=== PATIENT | female | born 1990 | race Caucasian/White ===

== ENCOUNTER 2017-08-21 20:20 | Observation (INO) ==
[2017-08-21] MEDS ORDERED: Vancomycin 1,000 MG VIAL IVPB ONE (21:08)
[2017-08-21] MEDS ORDERED: Tdap (Boostrix) Vaccine 0.5 ML SYRINGE IM ONE (21:08)
--- NOTE | 2017-08-21 21:12 | Emergency Department Note ---
Disposition Clinical Impression: Abscess of skin or subcutaneous tissue Qualifiers: Site of cutaneous abscess: unspecified site Qualified Code(s): L02.91 - Cutaneous abscess, unspecified Cellulitis Qualifiers: Site of cellulitis: trunk Site of cellulitis of trunk: abdominal wall Qualified Code(s): L03.311 - Cellulitis of abdominal wall Disposition: Still a Patient Condition: Fair Referrals: Mike Pettit CNP [Primary Care Provider] - Forms: ED Satisfaction Letter General Adult HPI - General Chief complaint: ED Skin/Abscess/Foreign Body Stated complaint: Abcess sent per [facility] Time Seen by Provider: 08/21/17 20:38 Source: patient Limitations: no limitations Nursing Notes Reviewed: Yes Vital Signs Reviewed: Yes - History of Present Illness Pain Scale: 4 - Related Data Home Medications Medication Instructions Recorded Confirmed Omeprazole [Prilosec] 40 mg PO QAM 01/24/15 08/14/16 Previous Rx's Medication Instructions Recorded Dicyclomine [Bentyl] 10 mg PO QID #20 capsule 08/14/16 Lansoprazole [Prevacid] 30 mg PO DAILY #14 capsule. 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 - Social History Smoking Status: Never smoker Smokeless Tobacco Status: No Alcohol use: Reports: none Drug use: Reports: none Physical Exam - General Limitations: no limitations General appearance: alert Course Vital Signs Temperature 99.0 F 08/21/17 20:29 Pulse Rate 87 08/21/17 20:29 Respiratory Rate 18 08/21/17 20:29 Blood Pressure 146/82 08/21/17 20:29 O2 Sat by Pulse Oximetry 97 08/21/17 20:29 Temperature 99.0 F 04/03/18 20:29 Pulse Rate 87 08/21/17 20:29 Respiratory Rate 18 08/21/17 20:29 Blood Pressure 146/82 08/21/17 20:29 O2 Sat by Pulse Oximetry 97 08/21/17 20:29 Oxygen Delivery Oxygen Delivery Room Air Medical Decision Making - MDM Narrative Medical decision making narrative: This documentation is done with the assistance of Dragon dictation. Despite efforts made to ensure accuracy, there may be inaccuracies in glycerine plant operator or spelling and typographical errors. Patient has a abscess on her pannus. Been there for couple days. She is not diabetic. This extends down almost onto the mons pubis. She has has no vaginal discharge no fevers here. We will order and get labs started on vancomycin. And CT her abdomen to make sure this does not become an intra- abdominal process. She is in agreement with this plan. She will need admission. 2245 hrs.: Patient has a mild leukocytosis. Her other labs look good. She is not acidotic. Waiting on CT scan. She is getting her vancomycin now. We will sign her out to the evening ER physician Dr. puckett here for further management and disposition. - Lab Data Result diagrams: 08/21/17 21:36 08/21/17 21:36 Lab Results 08/21/17 08/21/17 Range/Units 21:36 21:36 WBC 12.1 H (4.3-11.1) K/mcL RBC 4.89 (3.82-4.97) M/mcL Hgb 12.2 (11.5-15.4) g/dL Hct 38.5 (35.3-44.9) % MCV 78.7 L (83.0-100.0) fL MCH 24.9 L (28.0-33.3) pg MCHC 31.7 (31.6-35.5) g/dL RDW 15.1 H (11.5-14.5) % Plt Count 362 (140-400) K/mcL MPV 9.6 (9.4-12.4) fL Immature Gran % 0.3 (0-4) % Seg Neutrophils % 60.8 % Lymphocytes % 32.9 % Monocytes % 5.6 % Eosinophils % 0.0 % Basophils % 0.4 % Neutrophils # 7.3 (1.6-8.9) K/mcL Lymphocytes # 4.0 (0.6-4.6) K/mcL Monocytes # 0.7 (0.0-1.3) K/mcL Eosinophils # 0.0 (0.0-0.6) K/mcL Basophils # 0.1 (0.0-0.2) K/mcL Sodium 137 (136-145) mEq/L Potassium 4.0 (3.5-5.1) mEq/L Chloride 103 (98-107) mEq/L Carbon Dioxide 27 (23-29) mEq/L BUN 12 (6-20) mg/dL Creatinine 0.65 (0.60-1.20) mg/dL Est GFR ( Amer) > 60 (> 60) Est GFR (Non-Af Amer) > 60 (> 60) BUN/Creatinine Ratio 18 (6-26) Glucose 108 H (70-105) mg/dL Calculated Osmolality 284 (280-300) Calcium 9.4 (8.6-10.3) mg/dL Attestation Statement - Attestation Attestation: I examined this patient and my medical decision-making was reviewed with the Resident Physician. I agree with the documented findings, disposition and treatment plan as described except to the extent set forth below. Patient seen and evaluated by Dr. Jimenez and myself, agree with her evaluation management plan, supervised care the patient stay.
--- NOTE | 2017-08-21 21:12 | Emergency Department Note ---
Disposition Clinical Impression: Abscess of skin or subcutaneous tissue Qualifiers: Site of cutaneous abscess: unspecified site Qualified Code(s): L02.91 - Cutaneous abscess, unspecified Cellulitis Qualifiers: Site of cellulitis: trunk Site of cellulitis of trunk: abdominal wall Qualified Code(s): L03.311 - Cellulitis of abdominal wall Disposition: Still a Patient Condition: Good Referrals: Mike Pettit CNP [Primary Care Provider] - Forms: ED Satisfaction Letter Time of Disposition: 22:43 General Adult HPI - General Chief complaint: ED Skin/Abscess/Foreign Body Stated complaint: Abcess sent per [facility] Time Seen by Provider: 08/21/17 20:38 Source: patient Limitations: no limitations Nursing Notes Reviewed: Yes Vital Signs Reviewed: Yes - History of Present Illness HPI Narrative: 5 day history of abscess. Has drained 2 days ago. Now has a foul odor. No fevers no chills. No pain. Redness is increasing. Pain Scale: 4 - Related Data Home Medications Medication Instructions Recorded Confirmed Omeprazole [Prilosec] 40 mg PO QAM 01/24/15 08/14/16 Previous Rx's Medication Instructions Recorded Dicyclomine [Bentyl] 10 mg PO QID #20 capsule 08/14/16 Lansoprazole [Prevacid] 30 mg PO DAILY #14 capsule. 08/14/16 OxyCODONE/APAP 5/325 [Percocet 1 each PO Q6HR PRN #6 tablet 08/14/16 5/325] Sucralfate [Carafate] 1 gm PO QIDAC #20 tablet 08/14/16 Dicyclomine [Bentyl] 10 mg PO QID #20 capsule 07/18/17 Allergies Allergy/AdvReac Type Severity Reaction Status Date / Time No Known Allergies Allergy Verified 08/21/17 20:29 All systems ED: reviewed and negative except as stated. 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 Absent : tenderness - Respiratory Respiratory exam: Present: normal lung sounds bilaterally. Absent: respiratory distress, wheezes - Cardiovascular Cardiovascular exam: Present: regular rate, normal rhythm, normal heart sounds - Abdominal Exam Abdominal exam: Present: soft, Non-Tender. Absent: tenderness, distention, guarding, rebound, rigidity, organomegaly - Extremities Exam Extremities exam: Present: normal inspection, full ROM, normal capillary refill. Absent: tenderness, pedal edema - Back Exam Back exam: Present: normal inspection, full ROM. Absent: tenderness, CVA tenderness (R), CVA tenderness (L) - Neurological Exam Neurological exam: Present: alert, oriented X3 - Psychiatric Psychiatric exam: Present: normal affect, normal mood - Skin Skin exam: Present: warm, dry, other (Sober dollar size area of indurated lesion. Purulent discharge to the area. Necrotic rim. Bowel odor. Redness extending to mons pubis.) Course Course Narrative: Pleasant female presenting to the emergency department after being seen at [facility]. She states that she has an abscess to her pain is is been present since Sunday. This was 5 days ago. She states is progressively gotten worse. It did start to drain on Sunday night. However she states it did not pop as it normally does. She is this happened to her several times however not this extensive previously. She states today he started having a foul odor so she presented to the urgent care. She states it also appears to be black in nature. She denies any fevers shortness of breath or chills. She denies any vaginal discharge or abdominal pain. She has no nausea vomiting or diarrhea or urinary symptoms. She has seen dermatology for this in the past and this has healed. On exam she has a approximately half-dollar size indurated area with blackened edges any purulent discharge. This area has a foul odor. She has cellulitic changes that extend down to her mons pubis. Patient is not febrile and not tachycardic. She does not appear to be toxic. We will get a CT with contrast the patient's abdomen to ensure that the wound does not track intra- abdominal. We will get basic lab workup and start her on vancomycin. We will admit patient to the hospital. She is agreeable with this. Vital Signs Temperature 99.0 F 08/21/17 20:29 Pulse Rate 87 08/21/17 20:29 Respiratory Rate 18 08/21/17 20:29 Blood Pressure 146/82 08/21/17 20:29 O2 Sat by Pulse Oximetry 97 08/21/17 20:29 Temperature 99.0 F 08/21/17 20:29 Pulse Rate 87 08/21/17 20:29 Respiratory Rate 18 08/21/17 20:29 Blood Pressure 146/82 08/21/17 20:29 O2 Sat by Pulse Oximetry 97 08/21/17 20:29 Oxygen Delivery Oxygen Delivery Room Air Medical Decision Making - Medical Records Medical records reviewed: Yes I reviewed the patient's medical records. - Lab Data Lab results reviewed: Yes I reviewed the patient's lab results. Result diagrams: 08/21/17 21:36 08/21/17 21:36 Lab Results 08/21/17 08/21/17 Range/Units 21:36 21:36 WBC 12.1 H (4.3-11.1) K/mcL RBC 4.89 (3.82-4.97) M/mcL Hgb 12.2 (11.5-15.4) g/dL Hct 38.5 (35.3-44.9) % MCV 78.7 L (83.0-100.0) fL MCH 24.9 L (28.0-33.3) pg MCHC 31.7 (31.6-35.5) g/dL RDW 15.1 H (11.5-14.5) % Plt Count 362 (140-400) K/mcL MPV 9.6 (9.4-12.4) fL Immature Gran % 0.3 (0-4) % Seg Neutrophils % 60.8 % Lymphocytes % 32.9 % Monocytes % 5.6 % Eosinophils % 0.0 % Basophils % 0.4 % Neutrophils # 7.3 (1.6-8.9) K/mcL Lymphocytes # 4.0 (0.6-4.6) K/mcL Monocytes # 0.7 (0.0-1.3) K/mcL Eosinophils # 0.0 (0.0-0.6) K/mcL Basophils # 0.1 (0.0-0.2) K/mcL Sodium 137 (136-145) mEq/L Potassium 4.0 (3.5-5.1) mEq/L Chloride 103 (98-107) mEq/L Carbon Dioxide 27 (23-29) mEq/L BUN 12 (6-20) mg/dL Creatinine 0.65 (0.60-1.20) mg/dL Est GFR ( Amer) > 60 (> 60) Est GFR (Non-Af Amer) > 60 (> 60) BUN/Creatinine Ratio 18 (6-26) Glucose 108 H (70-105) mg/dL Calculated Osmolality 284 (280-300) Calcium 9.4 (8.6-10.3) mg/dL
[2017-08-21 21:56] LABS: Basophils # 0.1 K/mcL (0.0-0.2); Basophils % 0.4 %; Hematocrit 38.5 % (35.3-44.9); Hemoglobin 12.2 g/dL (11.5-15.4); Immature Granulocytes % 0.3 % (0-4); Lymphocytes % 32.9 %; Mean Corpuscular HGB Conc 31.7 g/dL (31.6-35.5); Mean Corpuscular Hemoglobin 24.9 pg (28.0-33.3); Mean Corpuscular Volume 78.7 fL (83.0-100.0); Mean Platelet Volume 9.6 fL (9.4-12.4); Monocytes # 0.7 K/mcL (0.0-1.3); Monocytes % 5.6 %; Neutrophils # 7.3 K/mcL (1.6-8.9); Platelet Count 362 K/mcL (140-400); Red Blood Count 4.89 M/mcL (3.82-4.97); Red Cell Distribution Width 15.1 % (11.5-14.5); Segmented Neutrophils % 60.8 %
[2017-08-21 22:15] LABS: BUN/Creatinine Ratio 18 (6-26); Blood Urea Nitrogen 12 mg/dL (6-20); Calcium 9.4 mg/dL (8.6-10.3); Carbon Dioxide 27 mEq/L (23-29); Chloride 103 mEq/L (98-107); Glucose 108 mg/dL (70-105); Osmolality,Calculated 284 (280-300); Sodium 137 mEq/L (136-145); eGFR For African Americans > 60 (> 60); eGFR For Non-African Americans > 60 (> 60)
[2017-08-22] MEDS ORDERED: Naloxone 0.4 MG/ML INJ IVP PRN (02:04)
--- NOTE | 2017-08-22 02:26 | Internal Med History&Physical ---
<MirlandeAyanna M - Last Filed: 08/22/17 02:44> Date of Encounter: 08/22/17 Time of Encounter: 02:23 Internal Medicine - H&P: HPI Chief complaint: Abscess Admitted From: Emergency Dept Plans for Post Hospital Care: Home History of present illness: Ms. Ghotra is a 26 year old female with history of morbid obesity, polycystic ovarian syndrome per the patient who presents with complaints of worsening boil/ abscess on the left lower abdomen. The patient tells me that he is ago she has been diagnosed with hydradenitis suppurativa by library supervisor and is not currently on any treatment of any kinds for that. She says she has been dealing with boils for the majority of her adult life. They usually come and go on their own after a few days. Some of them pop and end up draining before completely resolving. This time around about 5 days ago she noticed that she had a small boil on the left lower abdomen that has increased in size over the next 1-2 days. By the third day she noticed that it was darkening in color and started draining. She wanted to get evaluated for that however her mother ended up in the ICU at [facility] and she pushed it off till today. Over the last couple days she noticed that the areas darkening more and has had a bad odor to it. Denies any fever, chills, blurry vision, headache, vomiting, chest pain, shortness of breath, abdominal pain, urinary symptoms, or neurological symptoms. She reports occasional nausea. When she presented to the emergency department she was hemodynamically stable. Temperature was 99.0. She had laboratory workup that showed a white count of around 12,000s. She received a dose of vancomycin and a CT abdomen and pelvis was done with findings of skin thickening involving the lower pelvic pannus with subjacent fat stranding. A fluid collection is not identified. Those findings were compatible with cellulitis. There is also mention about her continued evidence of large cystic lesion within the left adnexal space that was unchanged compared to previous exam. There was also a mention of an enlarged left ovary which is also unchanged. Past Med Surg Social Fam HX - Past Medical History Medical history: GERD Psychiatric history: depression - Past Surgical History Surgical History: other - Social History Smoking Status: Never smoker Smokeless Tobacco Status: No Alcohol use: none Drug use: none - Family History Mother Family Member Ethnicity: Non- Living Status: Still Living Hx Family Cardiac Disorders: No Hx Family Respiratory Disorders: No Hx Family Cancer: No Hx Family GI Disorders: No Hx Family Endocrine Disorder: No Hx Family Neuromuscular Disorders: No Hx Family Neurologic Disorders: No Hx Family HEENT Disorders: No Hx Family Autoimmune Disorders: No Internal Medicine - H&P: Meds Omeprazole [Prilosec] 40 mg PO QAM 01/24/15 [History] Dicyclomine [Bentyl] 10 mg PO QID #20 capsule 08/14/16 [Rx] Lansoprazole [Prevacid] 30 mg PO DAILY #14 capsule. 08/14/16 [Rx] OxyCODONE/APAP 5/325 [Percocet 5/325] 1 each PO Q6HR PRN #6 tablet 08/14/16 [Rx] Sucralfate [Carafate] 1 gm PO QIDAC #20 tablet 08/14/16 [Rx] Dicyclomine [Bentyl] 10 mg PO QID #20 capsule 07/18/17 [Rx] 3 Allergy/AdvReac Type Severity Reaction Status Date / Time No Known Allergies Allergy Verified 08/21/17 20:29 All Systems PM: A 10-system review of systems was performed and is negative for pertinent findings except as documented above in the HPI. Review of systems: All systems reviewed are negative except for as mentioned above - Constitutional Vitals: Temp Pulse Resp BP Pulse Ox 99.0 F 92 18 137/80 93 08/21/17 20:29 08/22/17 01:07 08/22/17 01:07 08/22/17 01:07 08/22/17 01:07 Exam: GEN: NAD HEENT: AT, NC, No cyanosis, oral mucosa is moist, No JVD Lymphatics: No lymphadenoapthy Eyes: Extrocular muscles intact, anicteric CVS:RRR. S1, S2, No m/r/g RESP: CTAB ABD: Obese Soft, NT, ND, +BS, she has an area that is indurated on the left lower abdomen with blackened center and edges with surrounding erythema. There is about the size of half a golf ball. EXT: No edema, No rashes, 2+ DP NEURO: Nonfocal, CN II-XII intact, No focal motor or sensory deficits Psych: Cooperative, Not anxious or depressed Internal Med - H&P Results - Labs CBC & Chem 7: 08/21/17 21:36 08/21/17 21:36 Labs: Short CBC 08/21/17 Range/Units 21:36 WBC 12.1 H (4.3-11.1) K/mcL Hgb 12.2 (11.5-15.4) g/dL Hct 38.5 (35.3-44.9) % Plt Count 362 (140-400) K/mcL Neutrophils # 7.3 (1.6-8.9) K/mcL BMP 08/21/17 21:36 Sodium 137 Potassium 4.0 Chloride 103 Carbon Dioxide 27 BUN 12 Creatinine 0.65 Glucose 108 H Calcium 9.4 - Impressions ITS Impressions Abdomen/Pelvis CT 08/21/17 21:10 IMPRESSION: 1. Skin thickening involving the lower pelvic pannus, with subjacent fat stranding. A focal fluid collection is not identified. At this point time, findings are most compatible with cellulitis but this should be followed to resolution. 2. Continued evidence of a large cystic lesion within the left adnexal space, which is unchanged when compared to the previous exam. Soft tissue immediately adjacent to that presumably represents an enlarged left ovary, which is also unchanged. Gynecologic consultation is again recommended if that has not already performed. 3. Fatty liver infiltration. D/ / Uriel Samano MD / Uriel Samano MD Interpreting Provider: Uriel Samano MD - Assessment and plan (1) Cellulitis Current Visit: Yes Status: Acute Assessment and plan: Area with darkened center and edges with surrounding erythema. It is malodorous. We will continue vancomycin that was started in the emergency department. We will try to collect wound cultures if there is any drainage. Consult wound. Qualifiers: Site of cellulitis: trunk Site of cellulitis of trunk: abdominal wall Qualified Code(s): L03.311 - Cellulitis of abdominal wall (2) Prediabetes Current Visit: Yes Status: Acute Assessment and plan: Patient tells me that she has a diagnosis of polycystic ovarian disease. She tells me she is not diabetic. Glucose is 108. Check A1c. (3) Polycystic disease, ovaries Current Visit: Yes Status: Acute Assessment and plan: Patient has a history of ovarian cysts with a cyst getting drained sometime last year by [employer]. She was made aware of the findings on the CT abdomen and pelvis about the large cystic lesion within the left adnexal and the enlarged ovary. The patient is status post right salpingo-oophorectomy back in August 2015. She follows up with Dr. Toro from [employer]. She was advised to follow- up with him. (4) Morbid obesity with BMI of 70 and over, adult Current Visit: Yes Status: Acute Assessment and plan: Counseled. (5) DVT prophylaxis Current Visit: Yes Status: Acute Assessment and plan: Heparin subcutaneous - Time Spent With Patient Total time spent is greater than 50% in coordination of care (as documented) at patient's floor/unit and/or counseling patient: <Alvarez Collado F - Last Filed: 08/22/17 03:07> Date of Encounter: 08/22/17 Internal Medicine - H&P: HPI History of present illness: Ms. Ghotra is a 26 year old female All Systems PM: A 10-system review of systems was performed and is negative for pertinent findings except as documented above in the HPI. - Constitutional Vitals: Temp Pulse Resp BP Pulse Ox 99.0 F 92 18 137/80 93 08/21/17 20:29 08/22/17 01:07 08/22/17 01:07 08/22/17 01:07 08/22/17 01:07 Internal Med - H&P Results - Labs CBC & Chem 7: 08/21/17 21:36 08/21/17 21:36 - Time Spent With Patient Total time spent is greater than 50% in coordination of care (as documented) at patient's floor/unit and/or counseling patient:
[2017-08-22 05:36] LABS: Basophils % 0.3 %; Hematocrit 35.8 % (35.3-44.9); Hemoglobin 11.2 g/dL (11.5-15.4); Immature Granulocytes % 0.1 % (0-4); Lymphocytes # 2.9 K/mcL (0.6-4.6); Lymphocytes % 32.8 %; Mean Corpuscular HGB Conc 31.3 g/dL (31.6-35.5); Mean Corpuscular Hemoglobin 24.8 pg (28.0-33.3); Mean Corpuscular Volume 79.2 fL (83.0-100.0); Mean Platelet Volume 9.9 fL (9.4-12.4); Monocytes # 0.6 K/mcL (0.0-1.3); Monocytes % 6.5 %; Neutrophils # 5.3 K/mcL (1.6-8.9); Platelet Count 304 K/mcL (140-400); Red Blood Count 4.52 M/mcL (3.82-4.97); Red Cell Distribution Width 15.3 % (11.5-14.5); Segmented Neutrophils % 60.3 %
[2017-08-22 05:54] LABS: BUN/Creatinine Ratio 17 (6-26); Blood Urea Nitrogen 11 mg/dL (6-20); Calcium 8.9 mg/dL (8.6-10.3); Carbon Dioxide 26 mEq/L (23-29); Chloride 105 mEq/L (98-107); Glucose 113 mg/dL (70-105); Magnesium 1.8 mg/dL (1.6-2.6); Osmolality,Calculated 288 (280-300); Potassium 3.8 mEq/L (3.5-5.1); Sodium 139 mEq/L (136-145); eGFR For African Americans > 60 (> 60); eGFR For Non-African Americans > 60 (> 60)
[2017-08-22] MEDS ORDERED: *HR* Heparin 5,000 UNIT/ML VIAL SQ SCH (06:00)
[2017-08-22] MEDS: *HR* Heparin 5,000 UNIT/ML VIAL SQ SCH ×3 (06:26→20:32)
[2017-08-22 08:53] LABS: Estimated Average Glucose 140 mg/dl; Hemoglobin A1C 6.5 %
--- NOTE | 2017-08-22 12:10 | Event Note ---
Date of Encounter: 08/22/17 Time of Encounter: 12:10 Patient is a 26y/o female with PMH of PCOS, morbid obesity, DM who is admitted for abd pannus cellulitis(open ulcer wound). Pt is started on IV vancomycin to which is responding appropriately. Leukocytosis resolved. wound cultures were sent upon arrival. Pt is newly diagnosed with DM during this hospitalization Will provide her with Diabetes education and set up outpatient follow up with PCP for further management labs and vitals reviewed will closely monitor FS and BG
[2017-08-22] MEDS ORDERED: D5% in Water 1,000 ML IVC PRN (14:20)
[2017-08-22] MEDS ORDERED: Dextrose Gel 15 GM/37.5 ML TUBE PO PRN ×2 (14:20)
[2017-08-22] MEDS ORDERED: *HR* Dextrose 50 % in Water (Syg) 50 ML SYRINGE IVP PRN (14:20)
[2017-08-22] MEDS ORDERED: Acetaminophen 325 MG TABLET PO PRN (15:46)
[2017-08-22] MEDS ORDERED: *HR* HYDROcodone/Acet 5/325 mg TABLET PO PRN (15:49)
[2017-08-22] MEDS: Insulin LISPRO 300 UNITS/3 ML VIAL SQ SCH ×2 (16:49→21:39)
[2017-08-23] MEDS: *HR* Heparin 5,000 UNIT/ML VIAL SQ SCH ×3 (03:33→22:42)
[2017-08-23 07:55] LABS: Basophils % 0.4 %; Hematocrit 36.6 % (35.3-44.9); Hemoglobin 11.4 g/dL (11.5-15.4); Immature Granulocytes % 0.3 % (0-4); Lymphocytes # 2.4 K/mcL (0.6-4.6); Lymphocytes % 29.9 %; Mean Corpuscular HGB Conc 31.1 g/dL (31.6-35.5); Mean Corpuscular Hemoglobin 25.1 pg (28.0-33.3); Mean Corpuscular Volume 80.4 fL (83.0-100.0); Mean Platelet Volume 9.6 fL (9.4-12.4); Monocytes # 0.5 K/mcL (0.0-1.3); Platelet Count 305 K/mcL (140-400); Red Blood Count 4.55 M/mcL (3.82-4.97); Red Cell Distribution Width 14.9 % (11.5-14.5); Segmented Neutrophils % 63.4 %
[2017-08-23 07:56] LABS: BUN/Creatinine Ratio 16 (6-26); Blood Urea Nitrogen 9 mg/dL (6-20); Calcium 8.8 mg/dL (8.6-10.3); Carbon Dioxide 27 mEq/L (23-29); Chloride 110 mEq/L (98-107); Glucose 102 mg/dL (70-105); Magnesium 1.9 mg/dL (1.6-2.6); Osmolality,Calculated 289 (280-300); Phosphorous 4.2 mg/dL (2.7-4.5); Potassium 3.9 mEq/L (3.5-5.1); Sodium 140 mEq/L (136-145); eGFR For African Americans > 60 (> 60); eGFR For Non-African Americans > 60 (> 60)
[2017-08-23] MEDS: Insulin LISPRO 300 UNITS/3 ML VIAL SQ SCH ×4 (08:11→21:11)
--- NOTE | 2017-08-23 16:42 | Internal Med Progress Note ---
Date of Encounter: 08/23/17 Time of Encounter: 16:40 - Assessment and plan (1) Cellulitis Current Visit: Yes Status: Acute Assessment and plan: - leukocytosis improved. - continue vancomycin, pending final wound cx result. Qualifiers: Site of cellulitis: trunk Site of cellulitis of trunk: abdominal wall Qualified Code(s): L03.311 - Cellulitis of abdominal wall (2) Morbid obesity with BMI of 70 and over, adult Current Visit: No Status: Chronic Assessment and plan: - weight loss education given. (3) Polycystic disease, ovaries Current Visit: No Status: Chronic (4) Prediabetes Current Visit: Yes Status: Acute Assessment and plan: - insulin resistance casued by obesity. - weight loss education given, may try metformin. (5) DVT prophylaxis Current Visit: Yes Status: Acute - Time Spent With Patient Total time spent is greater than 50% in coordination of care (as documented) at patient's floor/unit and/or counseling patient: 25 - 35 minutes - Subjective Interval history: Patient resting, has no complaints. - Constitutional Vitals: Temp Pulse Resp BP Pulse Ox 98.3 F 83 16 128/79 97 08/23/17 15:19 08/23/17 15:19 08/23/17 15:19 08/23/17 15:19 08/23/17 15:19 Exam: PHYSICAL EXAMINATION: GENERAL APPEARANCE: The patient is alert, oriented and in no acute distress. HEENT: Head is normocephalic. The sinuses are nontender. Pupils are equal and reactive. The nares are patent. Oropharynx clear without lesions. NECK: Supple without lymphadenopathy. HEART: Regular rate and rhythm. LUNGS: No crackles or wheezes are heard. ABDOMEN: skin rash and induration noted at the lower abd wall. . EXTREMITIES: Without cyanosis, clubbing or edema. NEUROLOGICAL: Gross nonfocal. SKIN: Warm and dry without any rash. Internal Medicine: Result - Labs CBC & Chem 7: 08/23/17 07:08 08/23/17 07:08 Labs: Short CBC 08/23/17 Range/Units 07:08 WBC 7.9 (4.3-11.1) K/mcL Hgb 11.4 L (11.5-15.4) g/dL Hct 36.6 (35.3-44.9) % Plt Count 305 (140-400) K/mcL Neutrophils # 5.0 (1.6-8.9) K/mcL BMP 08/23/17 07:08 Sodium 140 Potassium 3.9 Chloride 110 H Carbon Dioxide 27 BUN 9 Creatinine 0.56 L Glucose 102 Calcium 8.8 Consult Discharge Plan - Plan Referrals: Mike Pettit CNP [Primary Care Provider] - 08/30/17 9:45 am (Please follow up as schedule....)
[2017-08-24] MEDS: *HR* Heparin 5,000 UNIT/ML VIAL SQ SCH (05:56)
[2017-08-24 06:01] LABS: Hematocrit 36.3 % (35.3-44.9); Hemoglobin 11.6 g/dL (11.5-15.4); Mean Corpuscular Hemoglobin 25.4 pg (28.0-33.3); Mean Corpuscular Volume 79.6 fL (83.0-100.0); Mean Platelet Volume 9.6 fL (9.4-12.4); Platelet Count 323 K/mcL (140-400); Red Blood Count 4.56 M/mcL (3.82-4.97); Red Cell Distribution Width 14.8 % (11.5-14.5)
[2017-08-24 07:07] VITALS: BP 151/87
[2017-08-24] MEDS: Insulin LISPRO 300 UNITS/3 ML VIAL SQ SCH (08:35)
--- NOTE | 2017-08-24 09:01 | Discharge Summary ---
- NOTES TO OUTPATIENT PROVIDER Notes to Outpatient Provider: f/u with PCP within a week. Date of Encounter: 08/24/17 Time of Encounter: 08:57 - Discharge Diagnosis (1) Cellulitis Priority: Primary Status: Acute Qualifiers: Site of cellulitis: trunk Site of cellulitis of trunk: abdominal wall Qualified Code(s): L03.311 - Cellulitis of abdominal wall (2) Morbid obesity with BMI of 70 and over, adult Priority: Secondary Status: Chronic (3) Polycystic disease, ovaries Priority: Secondary Status: Chronic (4) Prediabetes Priority: Secondary Status: Acute (5) Metabolic syndrome Priority: Secondary Status: Acute Hospital course: Ms. Ghotra is a 26 year old female was admitted with abdominal rash/wound. Her symptoms is consistent with cellulitis, and was treated with IV vancomycin with improvement. Wound culture showed no growth for 3 days. Her vital signs have been stable and she is afebrile, she is ambulating and tolerated oral intake. She will be discharged home today and continue to take oral antibiotics for 7 more days. She will follow up with primary care physician within a week. While in the hospital, she was found to have prediabetes and hypertension, metabolic syndrome was diagnosed. Obesity is likely the cause. Weight control/ diet controlled/increase of activity level were discussed with patient and she expressed understanding verbally. Discharge discussed with: patient Time spent discussing smoking cessation with patient: 3 to 10 minutes - Time Spent with Patient Total time spent providing and/or coordinating discharge services: Less than 30 minutes - Discharge Medications Home Medications: Omeprazole [PriLOSEC] 40 mg PO QAM 01/24/15 [History] Sertraline [Zoloft] 25 mg PO DAILY 08/22/17 [History] Linezolid [Zyvox] 600 mg PO BID #14 tablet 08/24/17 [Rx] Allergies/Adverse Reactions: 3 Allergy/AdvReac Type Severity Reaction Status Date / Time No Known Allergies Allergy Verified 08/21/17 20:29 Date of admission: 08/22/17 02:12 Primary care physician: Mike Pettit CNP Anticipated date of discharge: 08/24/17 - Constitutional Vitals: Temp Pulse Resp BP Pulse Ox 97.5 F L 72 20 151/87 97 08/24/17 06:59 08/24/17 05:16 08/24/17 06:59 08/24/17 06:59 08/24/17 06:59 Exam: PHYSICAL EXAMINATION: GENERAL APPEARANCE: The patient is alert, oriented and in no acute distress. HEENT: Head is normocephalic. The sinuses are nontender. Pupils are equal and reactive. The nares are patent. Oropharynx clear without lesions. NECK: Supple without lymphadenopathy. HEART: Regular rate and rhythm. LUNGS: No crackles or wheezes are heard. ABDOMEN: lower abd wound covered with dressing. EXTREMITIES: Without cyanosis, clubbing or edema. NEUROLOGICAL: Gross nonfocal. SKIN: Warm and dry without any rash. - Patient Status Disposition: Home, Self-Care Condition: Fair Functional capacity at discharge: independent ambulation Overall status at discharge: patient is back to baseline - Discharge Instructions Follow Up With: Mike Pettit CNP [Primary Care Provider] - 08/30/17 9:45 am (Please follow up as schedule....) - Diet and Activity Activity: increase activity as tolerated Diet: diabetic diet, low salt diet
[2017-08-24] MEDS ORDERED: Aminoglycoside Consult 1 EACH MC ONE (09:49)
== END 2017-08-24 09:50 | disposition home or self-care (01) ==
LOC: EMEROO 20:20 → 2ANU 20:20
PROVIDERS: ADMIT Internal Medicine; ATTEND Internal Medicine